=== PATIENT | male | born 2000 | race Asian ===

== ENCOUNTER 2022-06-01 08:02 | Outpatient (CLI) | payer OTHER, SELFPAY ==
--- NOTE | 2022-06-01 08:15 | CRLHL7_ITS ---
For Patients: As a result of the Century Cures Act, medical imaging exams and procedure reports are released immediately into your electronic medical record. You may view this report before your referring provider. If you have questions, please contact your health care provider. INDICATION: Gastric reflux. TECHNIQUE: Single contrast upper GI. FINDINGS: Normal esophagus. No stricture, mass, or obstruction. No hiatal hernia. Reflux was not elicited in the upright or recumbent/decubitus positions. Normal stomach and duodenum. These findings were discussed briefly with the patient. 2 minutes 7 seconds fluoroscopy time utilized. IMPRESSION: Normal upper GI. Dictated by Toni Pino MD @ 06/01/2022 9:23:59 AM (Electronically Signed)
== END 2022-06-01 08:03 | disposition home or self-care (01) ==
PROVIDERS: Visit Provider Family Medicine
DX: K21.9 Gastro-esophageal reflux disease without esophagitis (principal)
CPT/HCPCS: 74240